=== PATIENT | male | born 1970 | race Caucasian/White ===

== ENCOUNTER 2018-05-19 20:48 | Emergency (ER) | payer BC ==
[2018-05-19 21:39] LABS: #Basophils 0.1 thou/uL (0.0-0.2); #Eosinphils 0.2 thou/uL (0.0-0.7); #Lymphocytes 1.9 thou/uL (1.20-3.40); #Monocytes 0.5 thou/uL (0.11-0.59); #Neutrophils 6.2 thou/uL (1.40-6.50); %Basophils 1.3 % (0.0-1.0); %Lymphocytes 21.1 % (21.0-51.0); %Monocytes 5.8 % (0.0-10.0); %Neutrophils 69.9 % (42.0-75.0); Hemoglobin 14.3 g/dL (14.0-18.0); Mean Corpuscular HGB CONC 33.4 g/dL (32.0-36.0); Mean Corpuscular Hemoglobin 28.2 pg (27.0-31.0); Mean Corpuscular Volume 84.4 fL (78.0-98.0); Mean Platelet Volume 9.5 fL (7.4-10.4); Platelet Count 147 thou/uL (130-400); RBC Distribution Width 12.2 % (11.5-14.5); Red Blood Cell (RBC) Count 5.07 mill/uL (4.70-6.10); White Blood Cell (WBC) Count 8.8 thou/uL (4.8-10.8)
--- NOTE | 2018-05-19 21:45 | RAD ---
CHEST ONE VIEW: 05/19/18 HISTORY: Chest pain. FINDINGS: No comparison. Cardiac silhouette is magnified by projection. Pulmonary vasculature is unremarkable. Mediastinum is midline. No lobar consolidation or evidence of pneumothorax. IMPRESSION: No active cardiopulmonary abnormalities are demonstrated. POS: [facility]
[2018-05-19 21:53] LABS: ALT (SGPT) 16 U/L (8-55); AST (SGOT) 14 U/L (5-34); Albumin 4.1 g/dL (3.5-5.0); Alkaline Phosphatase 75 U/L (40-150); Anion Gap 13 mmol/L (10-20); BUN (Urea Nitrogen) 15 mg/dL (8.9-20.6); Bilirubin, Total 0.5 mg/dL (0.2-1.2); Calc. Creatinine Clearance 0 mL/min (70-130); Calcium 9.2 mg/dL (7.8-10.44); Carbon Dioxide 26 mmol/L (22-29); Chloride 104 mmol/L (98-107); Estimated GFR-MDRD 85; Globulin 2.7 g/dL (2.4-3.5); Glucose 95 mg/dL (70-105); Potassium 3.8 mmol/L (3.5-5.1); Protein, Total 6.8 g/dL (6.0-8.3); Sodium 139 mmol/L (136-145)
== END 2018-05-19 22:24 | disposition home or self-care (01) ==
LOC: SCSER 20:48
DX: R07.89 Other chest pain (principal)
CPT/HCPCS: 36415; 71045; 80053; 84484; 85025; 93005

== ENCOUNTER 2018-05-28 12:15 | Outpatient (CLI) | payer BC ==
[2018-05-28 13:58] LABS: #Basophils 0.1 thou/uL (0.0-0.2); #Eosinphils 0.1 thou/uL (0.0-0.7); #Lymphocytes 1.4 thou/uL (1.20-3.40); #Monocytes 0.4 thou/uL (0.11-0.59); #Neutrophils 5.2 thou/uL (1.40-6.50); %Basophils 0.8 % (0.0-1.0); %Eosinophils 1.1 % (0.0-10.0); %Monocytes 5.2 % (0.0-10.0); %Neutrophils 72.8 % (42.0-75.0); Hemoglobin 15.2 g/dL (14.0-18.0); Mean Corpuscular HGB CONC 34.3 g/dL (32.0-36.0); Mean Corpuscular Hemoglobin 29.9 pg (27.0-31.0); Mean Corpuscular Volume 87.1 fL (78.0-98.0); Mean Platelet Volume 9.7 fL (7.4-10.4); Platelet Count 156 thou/uL (130-400); RBC Distribution Width 11.7 % (11.5-14.5); Red Blood Cell (RBC) Count 5.09 mill/uL (4.70-6.10); White Blood Cell (WBC) Count 7.2 thou/uL (4.8-10.8)
[2018-05-28 14:15] LABS: Cardiac Risk 4.5 (Less than 4.5)
== END 2018-05-28 12:16 | disposition home or self-care (01) ==
LOC: LABBT 12:15
PROVIDERS: ATTEND Internal Medicine Cardiovascular Disease
DX: Z01.812 Encounter for preprocedural laboratory examination (principal); R07.89 Other chest pain
CPT/HCPCS: 80061; 85025

== ENCOUNTER 2018-05-31 05:58 | Day surgery (SDC) | payer BC ==
[2018-05-28 12:29] VITALS: BMI 38.6
[2018-05-31] MEDS ORDERED: Diazepam 5 MG TAB ONE (06:10)
[2018-05-31] MEDS ORDERED: Midazolam HCl 2 mg/2 ml Vial ONE (06:32)
[2018-05-31] MEDS ORDERED: Fentanyl 100 MCG/2 ML VIAL ONE (06:33)
[2018-05-31] MEDS ORDERED: Iopamidol 370 76% 100 ML VIAL ONE (10:12)
--- NOTE | 2018-05-31 11:01 | ULT ---
FUltrasound abdomen limited: (Right upper quadrant) HISTORY: 47-year-old male with right upper quadrant abdominal pain FINDINGS: Patient is status post catheterization, and unable to turn decubitus. Shadowing from bowel gas and body habitus also limits visualization of abdominal contents. Gallbladder: Suboptimal visualization due to reasons given above. Normal wall thickness. No gallstone s or sludge identified. No pericholecystic fluid. Liver: Normal parenchymal echogenicity. Right kidney: No hydronephrosis. Pancreas: Nonspecific sonographic appearance.. Common duct caliber: 5 mm. IMPRESSION: 1. Limited study. 2. No gross evidence of acute cholecystitis. 3. No biliary obstruction.
--- NOTE | 2018-05-31 14:02 | DIS ---
DATE OF ADMISSION: 05/31/2018 DATE OF DISCHARGE: 05/31/2018 Mr. Perez underwent cardiac catheterization today. The indication was recurrent chest pressure and tightness. The patient underwent cardiac catheterization, revealed the followin. Left main, normal. 2. LAD, normal. 3. Circumflex, normal. 4. Right coronary, normal. On the right coronary artery, there was catheter induced at bending of the artery, but there was no obstructive stenosis. The films were reviewed carefully. I think this is all related to the catheter placement. The left ventricular ejection fraction is normal. Reviewing the patient's laboratory, his potassium is 3.8, BUN is 15, creatinine 0.9, AST 14, ALT 16. He had troponin levels which were negative despite prolonged episodes of chest pain. Pertinent laboratory: Cholesterol is 165, LDL 109, HDL 37. Hemoglobin was 15.2, WBCs 7.2. The source of the discomfort is unclear. He has been on proton pump inhibitors for now for a week and thus going to continue that. The episode he had Thursday was not as severe as the previous episodes. Ultrasound of the gallbladder was done, it is a suboptimal study as there was some gas and he could not lay on his side, but there was no obvious gallstones. At this stage, the patient's symptoms persist, could consider upper endoscopy. There is always a chance of coronary spasm, but that looks unlikely. The patient did have a repeat troponin level but I do not see it now in the computer. We will double check on that. The source of the discomfort is unclear at this time. It is possible that it is still esophageal spasm. Coronary spasm seems unlikely. Ask him to continue exerting himself. When he exerts himself, he feels fine. Follow up in the office in a couple of weeks. Job ID: [id number]
== END 2018-05-31 14:56 | disposition home or self-care (01) ==
LOC: CCL 05:58
PROVIDERS: ATTEND Internal Medicine Cardiovascular Disease
PROC: 4A023N7 Measurement of Cardiac Sampling and Pressure, Left Heart, Percutaneous Approach (ICD-10-PCS; principal; 2018-05-31)
PROC: B2111ZZ Fluoroscopy of Multiple Coronary Arteries using Low Osmolar Contrast (ICD-10-PCS; principal; 2018-05-31)
DX: R07.89 Other chest pain (principal); I10 Essential (primary) hypertension; Z79.82 Long term (current) use of aspirin; Z79.899 Other long term (current) drug therapy; Z88.0 Allergy status to penicillin
CPT/HCPCS: 76705; 76942; 93458; 99152; 99153; C1769; J1644; J2250; J3010; Q9967

== ENCOUNTER 2018-07-23 07:30 | Outpatient (CLI) | payer BC ==
--- NOTE | 2018-07-23 09:43 | CT ---
CT THORAX WITH IV CONTRAST: Date: 07/23/18 INDICATION: History of chest pain for last 3 months with high blood pressure. CONTRAST: 100 mL Isovue-[id number]. COMPARISON: Chest radiograph dated 05/19/18. FINDINGS: There is no air space consolidation, pleural effusion, or suspicious nodule identified. There is a justice b-4 mm subpleural pulmonary nodule within the anterolateral right lower lobe. There are areas of subs egmental volume loss within the medial segment of the right middle lobe. There is a calcified granulo ma within the medial segment of the right middle lobe. No enlarged lymph nodes are evident. Heart and great vessels appear within normal limits. No axillary lymphadenopathy is evident. Within the upper abdomen, no acute abnormality is evident. Minimal to mild disc degenerative disease is seen involving the thoracic spine. No acute osseous abno rmality is evident. A few scattered bone islands are seen within the thoracic vertebral bodies. IMPRESSION: No acute cardiopulmonary abnormality demonstrated. POS: [facility]
== END 2018-07-23 07:31 | disposition home or self-care (01) ==
LOC: SCSCT 07:30
PROVIDERS: ATTEND Internal Medicine Gastroenterology
DX: R07.9 Chest pain, unspecified (principal)
CPT/HCPCS: 71260

== ENCOUNTER 2018-10-28 07:53 | Outpatient (CLI) | payer BC ==
--- NOTE | 2018-10-28 09:57 | CT ---
CT coronary angiogram with and without contrast: DATE: 10/28/2018 HISTORY: 48-year-old male with chest pain TECHNIQUE: IV contrast: 104 mm Isovue-[id number]. Precontrast scan and arterial phase postcontrast scans through the heart, with limited [id number]. 3-D MIP reconstructions. FINDINGS: There is no coronary artery atherosclerotic calcification. No thoracic aortic aneurysm or dissection. No cardiomegaly or pericardial effusion. No atrial septal defect or ventricular septal defect. No thrombus in left atrial appendage. No consolidation or pulmonary edema in central portions of lungs. Elevated right hemidiaphragm. No significant noncalcified coronary atherosclerotic plaque visualized. No plaque visualized in the thoracic aorta. Trachea and major bronchi are patent and dagmar r. No evidence of significant stenosis involving RCA, left main, LAD, LCx, or PDA. Right dominant system. No atrial or ventricular chamber dilation. No anomalous origin or path of coronary arteries. No myocardial bridging identified. IMPRESSION: Normal
[2018-10-28] MEDS ORDERED: ISOVUE-370 76%-LOCM 1 ML ONE (17:12)
== END 2018-10-28 07:54 | disposition home or self-care (01) ==
LOC: BICCT 07:53
PROVIDERS: ATTEND Internal Medicine Cardiovascular Disease
DX: R07.89 Other chest pain (principal)
CPT/HCPCS: 75574; Q9966

== ENCOUNTER 2020-06-05 10:27 | Inpatient (IN) | payer BC ==
[~2020-06-05 10:27] MED LIST: PROPOFOL 200 MG/20 ML VIAL ONE; Succinylcholine 200 MG/10 ml SYRINGE FS ONE
[2020-06-05] MEDS ORDERED: Sodium Chloride 0.9% 1,000 ML IV SCH (13:45)
[2020-06-05] MEDS ORDERED: Zinc Sulfate 220 MG CAP PO SCH (14:00)
[2020-06-05] MEDS: DEXAMETHASONE IVPB SCH (14:45)
[2020-06-05] MEDS: SODIUM CHLORIDE 0.9% IVPB SCH (14:45)
[2020-06-05] MEDS: Sodium Chloride 0.9% 1,000 ML IV SCH (14:55)
[2020-06-05] MEDS: Cefepime 1 GM in Sodium Chloride 0.9% 100 ML IVPB SCH (14:55)
[2020-06-05] MEDS: Doxycycline 100 MG in Sodium Chloride 0.9% 100 ML IVPB SCH (14:58)
[2020-06-05] MEDS ORDERED: Thiamine HCl 200 MG/2 ML VIAL SLOW IVP SCH (15:00)
[2020-06-05] MEDS ORDERED: Guaifenesin DM 100-10/5 ML UDCUP PO PRN (16:39)
[2020-06-05] MEDS ORDERED: Propofol 1,000 MG/100 ML VIAL IV ONE (16:57)
[2020-06-05] MEDS ORDERED: Ventilator Sedation Protocol 1 EACH FS SCH (17:15)
[2020-06-05] MEDS ORDERED: Ondansetron PF 4 MG/2 ML Vial IVP PRN (17:27)
[2020-06-05] MEDS ORDERED: Fentanyl CADD 0 ML ONE (17:28)
[2020-06-05] MEDS ORDERED: Fentanyl BOLUS 250 ML IVPB PRN (17:30)
[2020-06-05] MEDS ORDERED: Morphine 2 MG/ML VIAL SLOW IVP PRN (17:30)
[2020-06-05] MEDS ORDERED: DISCONTINUE PREVIOUS NARCOTIC PAIN MEDICATIONS AND BENZODIAZEPINES FS SCH (17:30)
[2020-06-05] MEDS ORDERED: Propofol BOLUS 1,000 MG/100 ML VIAL IV PRN (17:30)
[2020-06-05] MEDS ORDERED: Fentanyl CADD 100 ML ONE (17:30)
[2020-06-05] MEDS: Fentanyl CADD 100 ML IV SCH ×2 (17:34→19:25)
[2020-06-05] MEDS: Lorazepam 2 MG/ML VIAL SLOW IVP PRN (17:34)
[2020-06-05] MEDS: Vecuronium 10 MG VIAL IV PRN (19:39)
[2020-06-05] MEDS ORDERED: Norepinephrine 8 MG/0.9% NS 250 ML ONE (19:56)
[2020-06-05 19:57] LABS: Actual Bicarbonate (HCO3a) 22.6 mEq/L (22-28); Base Excess (BEa) -2.3 mEq/L (-2.0 to +3.0); CO2 Tension 39.8 mmHg (35.0-45.0); Calcium, Ionized (arterial) 1.16 mmol/L (1.12-1.30); Carboxyhemoglobin (COHb) 0.4 gm% (0.0-3.0); Hemoglobin (Hb) 13.5 g/dL (14.0-18.0); Potassium - ABG Lab 4.57 mmol/L (3.70-5.30); pH, Arterial 7.37 (7.35-7.45)
[2020-06-05 19:59] LABS: O2 Tension (PaO2), arterial 58.2 mmHg (80.0-100.0); Puncture Site LRA
[2020-06-05] MEDS ORDERED: Norepinephrine 8 MG/0.9% NS 250 ML IVPB PRN (20:14)
[2020-06-05] MEDS ORDERED: Ascorbic Acid 500 mg Chewable Tablet PO SCH (21:00)
[2020-06-05] MEDS: Mometasone 200 MCG/Formoterol 5 MCG 120 PUFF INHALER INH SCH (21:12)
[2020-06-05] MEDS: Famotidine/PF 20 mg/2ml Vial SLOW IVP SCH (22:22)
[2020-06-05] MEDS: Enoxaparin Sodium 40 MG/0.4 ML SYRINGE SC SCH (22:22)
[2020-06-05] MEDS: Propofol 1,000 MG/100 ML VIAL IV PRN (22:30)
[2020-06-05] MEDS: Colchicine 0.6 MG TAB PO SCH (22:58)
[2020-06-06] MEDS: Propofol 1,000 MG/100 ML VIAL IV PRN ×10 (00:51→21:49)
[2020-06-06] MEDS: Vecuronium 10 MG VIAL IV PRN ×2 (01:03→12:10)
[2020-06-06] MEDS: Cefepime 1 GM in Sodium Chloride 0.9% 100 ML IVPB SCH ×2 (02:42→14:07)
[2020-06-06 03:19] LABS: #Lymphocytes 0.5 thou/uL (1.20-3.40); #Monocytes 0.4 thou/uL (0.11-0.59); #Neutrophils 6.6 thou/uL (1.40-6.50); %Basophils 0.1 % (0.0-1.0); %Monocytes 4.9 % (0.0-10.0); Hemoglobin 11.6 g/dL (14.0-18.0); Mean Corpuscular HGB CONC 32.5 g/dL (32.0-36.0); Mean Corpuscular Hemoglobin 27.9 pg (27.0-31.0); Mean Platelet Volume 8.8 fL (7.4-10.4); Platelet Count 148 thou/uL (130-400); RBC Distribution Width 12.2 % (11.5-14.5); Red Blood Cell (RBC) Count 4.15 mill/uL (4.70-6.10); White Blood Cell (WBC) Count 7.5 thou/uL (4.8-10.8)
[2020-06-06 03:40] LABS: ALT (SGPT) 28 U/L (8-55); AST (SGOT) 46 U/L (5-34); Albumin 3.1 g/dL (3.5-5.0); Alkaline Phosphatase 61 U/L (40-110); Bilirubin, Direct 0.2 mg/dL (0.1-0.3); Bilirubin, Total 0.5 mg/dL (0.2-1.2); Protein, Total 6.1 g/dL (6.0-8.3)
[2020-06-06 03:53] LABS: Anion Gap 16 mmol/L (10-20); BUN (Urea Nitrogen) 33 mg/dL (8.9-20.6); Calc. Creatinine Clearance 186 mL/min (70-130); Calcium 8.5 mg/dL (7.8-10.44); Carbon Dioxide 18 mmol/L (22-29); Chloride 109 mmol/L (98-107); Glucose 139 mg/dL (70-105); Potassium 4.1 mmol/L (3.5-5.1); Sodium 139 mmol/L (136-145)
[2020-06-06] MEDS: Mometasone 200 MCG/Formoterol 5 MCG 120 PUFF INHALER INH SCH ×2 (08:00→18:25)
[2020-06-06] MEDS ORDERED: Albumin 25% 25 GM/100 ML BOT IVPB ONE (08:51)
[2020-06-06] MEDS ORDERED: Enoxaparin Sodium 40 MG/0.4 ML SYRINGE SC SCH (09:00)
[2020-06-06] MEDS: Enoxaparin Sodium 40 MG/0.4 ML SYRINGE SC SCH ×2 (09:18→20:46)
[2020-06-06] MEDS: Colchicine 0.6 MG TAB PO SCH ×2 (09:18→20:46)
[2020-06-06] MEDS: Famotidine/PF 20 mg/2ml Vial SLOW IVP SCH ×2 (09:18→20:46)
[2020-06-06] MEDS: REMDESIVIR (EUA) 100 MG in Sodium Chloride 0.9% 250 ML 230 ML IV SCH (09:19)
[2020-06-06] MEDS: Zinc Sulfate 220 MG CAP PO SCH (09:19)
[2020-06-06] MEDS: Sodium Chloride 0.9% 1,000 ML IV SCH (09:20)
[2020-06-06] MEDS: Doxycycline 100 MG in Sodium Chloride 0.9% 100 ML IVPB SCH (09:21)
[2020-06-06] MEDS: SODIUM CHLORIDE 0.9% IVPB SCH (14:07)
[2020-06-06] MEDS: DEXAMETHASONE IVPB SCH (14:07)
[2020-06-06] MEDS ORDERED: Fentanyl CADD 100 ML ONE (16:51)
[2020-06-06] MEDS: Fentanyl CADD 100 ML IV SCH (16:55)
[2020-06-07] MEDS: Propofol 1,000 MG/100 ML VIAL IV PRN ×10 (02:02→23:35)
[2020-06-07] MEDS: Cefepime 1 GM in Sodium Chloride 0.9% 100 ML IVPB SCH ×2 (02:02→15:09)
[2020-06-07] MEDS: Vecuronium 10 MG VIAL IV PRN ×4 (02:25→15:58)
[2020-06-07] MEDS ORDERED: Fentanyl CADD 100 ML ONE ×2 (04:09→17:23)
[2020-06-07] MEDS: Fentanyl CADD 100 ML IV SCH ×2 (04:14→17:31)
[2020-06-07 04:17] LABS: Anion Gap 14 mmol/L (10-20); BUN (Urea Nitrogen) 32 mg/dL (8.9-20.6); Calc. Creatinine Clearance 206 mL/min (70-130); Calcium 8.5 mg/dL (7.8-10.44); Carbon Dioxide 20 mmol/L (22-29); Chloride 109 mmol/L (98-107); Glucose 146 mg/dL (70-105); Potassium 4.4 mmol/L (3.5-5.1); Sodium 139 mmol/L (136-145)
[2020-06-07] MEDS: Sodium Chloride 0.9% 1,000 ML IV SCH (06:00)
[2020-06-07] MEDS: Mometasone 200 MCG/Formoterol 5 MCG 120 PUFF INHALER INH SCH ×2 (07:32→19:01)
[2020-06-07 09:09] LABS: Actual Bicarbonate (HCO3a) 20.2 mEq/L (22-28); Base Excess (BEa) -2.4 mEq/L (-2.0 to +3.0); CO2 Tension 28.6 mmHg (35.0-45.0); Calcium, Ionized (arterial) 1.17 mmol/L (1.12-1.30); Carboxyhemoglobin (COHb) 0.3 gm% (0.0-3.0); Hemoglobin (Hb) 12.4 g/dL (14.0-18.0); O2 Tension (PaO2), arterial 92.1 mmHg (80.0-100.0); Potassium - ABG Lab 4.14 mmol/L (3.70-5.30); pH, Arterial 7.47 (7.35-7.45)
[2020-06-07 09:12] LABS: Puncture Site RRA
[2020-06-07] MEDS: Colchicine 0.6 MG TAB PO SCH ×2 (09:18→20:27)
[2020-06-07] MEDS: REMDESIVIR (EUA) 100 MG in Sodium Chloride 0.9% 250 ML 230 ML IV SCH (09:18)
[2020-06-07] MEDS: Enoxaparin Sodium 40 MG/0.4 ML SYRINGE SC SCH ×2 (09:18→20:28)
[2020-06-07] MEDS: Zinc Sulfate 220 MG CAP PO SCH (09:19)
[2020-06-07] MEDS: Famotidine/PF 20 mg/2ml Vial SLOW IVP SCH (09:19)
[2020-06-07 10:07] LABS: #Lymphocytes 0.8 thou/uL (1.20-3.40); #Monocytes 0.6 thou/uL (0.11-0.59); #Neutrophils 9.6 thou/uL (1.40-6.50); %Lymphocytes 6.9 % (21.0-51.0); %Monocytes 5.3 % (0.0-10.0); %Neutrophils 87.8 % (42.0-75.0); Hemoglobin 11.6 g/dL (14.0-18.0); Mean Corpuscular HGB CONC 32.5 g/dL (32.0-36.0); Mean Corpuscular Hemoglobin 27.7 pg (27.0-31.0); Mean Corpuscular Volume 85.5 fL (78.0-98.0); Mean Platelet Volume 9.7 fL (7.4-10.4); Platelet Count 223 thou/uL (130-400); RBC Distribution Width 12.3 % (11.5-14.5); Red Blood Cell (RBC) Count 4.19 mill/uL (4.70-6.10)
[2020-06-07] MEDS: Lorazepam 2 MG/ML VIAL SLOW IVP PRN (11:47)
[2020-06-07] MEDS: SODIUM CHLORIDE 0.9% IVPB SCH (15:09)
[2020-06-07] MEDS: DEXAMETHASONE IVPB SCH (15:09)
[2020-06-07] MEDS: Famotidine 20 MG TAB PER TUBE SCH (20:27)
[2020-06-08] MEDS: Propofol 1,000 MG/100 ML VIAL IV PRN ×8 (01:42→22:18)
[2020-06-08] MEDS: Cefepime 1 GM in Sodium Chloride 0.9% 100 ML IVPB SCH ×2 (02:25→13:25)
[2020-06-08] MEDS: Fentanyl CADD 100 ML IV SCH ×2 (02:36→22:18)
[2020-06-08] MEDS: Sodium Chloride 0.9% 1,000 ML IV SCH ×2 (03:52→21:03)
[2020-06-08 06:15] LABS: #Lymphocytes 0.6 thou/uL (1.20-3.40); #Monocytes 0.5 thou/uL (0.11-0.59); #Neutrophils 8.3 thou/uL (1.40-6.50); %Basophils 0.3 % (0.0-1.0); %Eosinophils 0.5 % (0.0-10.0); %Lymphocytes 5.8 % (21.0-51.0); %Monocytes 5.2 % (0.0-10.0); %Neutrophils 88.2 % (42.0-75.0); Hemoglobin 10.5 g/dL (14.0-18.0); Mean Corpuscular HGB CONC 32.6 g/dL (32.0-36.0); Mean Corpuscular Hemoglobin 27.8 pg (27.0-31.0); Mean Corpuscular Volume 85.4 fL (78.0-98.0); Mean Platelet Volume 8.6 fL (7.4-10.4); Platelet Count 228 thou/uL (130-400); RBC Distribution Width 12.2 % (11.5-14.5); Red Blood Cell (RBC) Count 3.79 mill/uL (4.70-6.10); White Blood Cell (WBC) Count 9.4 thou/uL (4.8-10.8)
[2020-06-08 06:38] LABS: Anion Gap 13 mmol/L (10-20); BUN (Urea Nitrogen) 30 mg/dL (8.9-20.6); Calc. Creatinine Clearance 272 mL/min (70-130); Calcium 7.4 mg/dL (7.8-10.44); Carbon Dioxide 16 mmol/L (22-29); Chloride 115 mmol/L (98-107); Glucose 132 mg/dL (70-105); Potassium 3.8 mmol/L (3.5-5.1); Sodium 140 mmol/L (136-145)
[2020-06-08 06:39] LABS: ALT (SGPT) 20 U/L (8-55); AST (SGOT) 20 U/L (5-34); Albumin 2.8 g/dL (3.5-5.0); Alkaline Phosphatase 52 U/L (40-110); Bilirubin, Direct 0.2 mg/dL (0.1-0.3); Bilirubin, Total 0.3 mg/dL (0.2-1.2); Protein, Total 4.9 g/dL (6.0-8.3)
[2020-06-08 06:57] LABS: Actual Bicarbonate (HCO3a) 18.6 mEq/L (22-28); Base Excess (BEa) -3.9 mEq/L (-2.0 to +3.0); CO2 Tension 26.9 mmHg (35.0-45.0); Calcium, Ionized (arterial) 1.19 mmol/L (1.12-1.30); Carboxyhemoglobin (COHb) 0.3 gm% (0.0-3.0); Hemoglobin (Hb) 12.5 g/dL (14.0-18.0); O2 Tension (PaO2), arterial 96.6 mmHg (80.0-100.0); Potassium - ABG Lab 4.14 mmol/L (3.70-5.30); pH, Arterial 7.46 (7.35-7.45)
[2020-06-08 06:58] LABS: Puncture Site LRA
[2020-06-08 06:59] LABS: ALV-art Gradient 190.625 mmHg (0-20)
[2020-06-08] MEDS: Mometasone 200 MCG/Formoterol 5 MCG 120 PUFF INHALER INH SCH ×2 (06:59→19:08)
[2020-06-08] MEDS: Enoxaparin Sodium 40 MG/0.4 ML SYRINGE SC SCH ×2 (08:36→20:59)
[2020-06-08] MEDS: Colchicine 0.6 MG TAB PO SCH ×2 (08:36→20:31)
[2020-06-08] MEDS: Zinc Sulfate 220 MG CAP PO SCH (08:36)
[2020-06-08] MEDS: Famotidine 20 MG TAB PER TUBE SCH ×2 (08:36→20:31)
[2020-06-08] MEDS: REMDESIVIR (EUA) 100 MG in Sodium Chloride 0.9% 250 ML 230 ML IV SCH (09:42)
[2020-06-08] MEDS: Vecuronium 10 MG VIAL IV PRN ×3 (10:27→13:52)
[2020-06-08] MEDS: Lorazepam 2 MG/ML VIAL SLOW IVP PRN (12:21)
[2020-06-08] MEDS ORDERED: Fentanyl CADD 100 ML ONE ×2 (12:35→22:12)
[2020-06-08] MEDS: Fentanyl CADD 100 ML ONE ×2 (12:38→22:19)
[2020-06-08] MEDS: DEXAMETHASONE IVPB SCH (13:51)
[2020-06-08] MEDS: SODIUM CHLORIDE 0.9% IVPB SCH (13:51)
[2020-06-09] MEDS: Propofol 1,000 MG/100 ML VIAL IV PRN ×10 (00:57→23:16)
[2020-06-09] MEDS: Vecuronium 10 MG VIAL IV PRN (02:07)
[2020-06-09] MEDS: Cefepime 1 GM in Sodium Chloride 0.9% 100 ML IVPB SCH ×2 (02:22→14:36)
[2020-06-09 03:44] LABS: #Lymphocytes 0.8 thou/uL (1.20-3.40); #Monocytes 0.6 thou/uL (0.11-0.59); #Neutrophils 9.1 thou/uL (1.40-6.50); %Eosinophils 0.1 % (0.0-10.0); %Lymphocytes 7.2 % (21.0-51.0); %Monocytes 5.6 % (0.0-10.0); %Neutrophils 87.1 % (42.0-75.0); Hemoglobin 11.5 g/dL (14.0-18.0); Mean Corpuscular HGB CONC 32.4 g/dL (32.0-36.0); Mean Corpuscular Hemoglobin 27.3 pg (27.0-31.0); Mean Corpuscular Volume 84.4 fL (78.0-98.0); Mean Platelet Volume 8.9 fL (7.4-10.4); Platelet Count 260 thou/uL (130-400); RBC Distribution Width 11.9 % (11.5-14.5); White Blood Cell (WBC) Count 10.5 thou/uL (4.8-10.8)
[2020-06-09 03:57] LABS: Anion Gap 13 mmol/L (10-20); BUN (Urea Nitrogen) 30 mg/dL (8.9-20.6); CRP (Inflammatory) 2.95 mg/dL (= or < 0.5); Calc. Creatinine Clearance 242 mL/min (70-130); Calcium 7.8 mg/dL (7.8-10.44); Carbon Dioxide 19 mmol/L (22-29); Chloride 110 mmol/L (98-107); Glucose 135 mg/dL (70-105); Potassium 4.3 mmol/L (3.5-5.1); Sodium 138 mmol/L (136-145)
[2020-06-09 07:09] LABS: Base Excess (BEa) -1.8 mEq/L (-2.0 to +3.0); CO2 Tension 29.9 mmHg (35.0-45.0); Calcium, Ionized (arterial) 1.17 mmol/L (1.12-1.30); Carboxyhemoglobin (COHb) 0.3 gm% (0.0-3.0); Hemoglobin (Hb) 12.5 g/dL (14.0-18.0); O2 Tension (PaO2), arterial 94.4 mmHg (80.0-100.0); Potassium - ABG Lab 4.29 mmol/L (3.70-5.30); pH, Arterial 7.46 (7.35-7.45)
[2020-06-09 07:10] LABS: Puncture Site LRA
[2020-06-09 07:11] LABS: ALV-art Gradient 224.725 mmHg (0-20)
[2020-06-09] MEDS ORDERED: Fentanyl CADD 100 ML ONE ×2 (07:19→15:57)
[2020-06-09] MEDS: Mometasone 200 MCG/Formoterol 5 MCG 120 PUFF INHALER INH SCH ×2 (07:30→19:16)
[2020-06-09] MEDS: Fentanyl CADD 100 ML IV SCH ×2 (07:48→16:42)
[2020-06-09] MEDS: Lorazepam 2 MG/ML VIAL SLOW IVP PRN ×3 (08:47→20:45)
[2020-06-09] MEDS: Enoxaparin Sodium 40 MG/0.4 ML SYRINGE SC SCH ×2 (08:48→19:45)
[2020-06-09] MEDS: Famotidine 20 MG TAB PER TUBE SCH ×2 (08:49→19:45)
[2020-06-09] MEDS: Zinc Sulfate 220 MG CAP PO SCH (08:49)
[2020-06-09] MEDS: Colchicine 0.6 MG TAB PO SCH ×2 (08:49→19:45)
[2020-06-09] MEDS: SODIUM CHLORIDE 0.9% IVPB SCH (14:36)
[2020-06-09] MEDS: DEXAMETHASONE IVPB SCH (14:36)
[2020-06-09] MEDS: Sodium Chloride 0.9% 1,000 ML IV SCH (19:45)
[2020-06-10] MEDS ORDERED: Fentanyl CADD 100 ML ONE ×2 (01:38→17:50)
[2020-06-10] MEDS: Propofol 1,000 MG/100 ML VIAL IV PRN ×7 (01:43→22:27)
[2020-06-10] MEDS: Fentanyl CADD 100 ML IV SCH ×2 (02:51→19:06)
[2020-06-10] MEDS: Cefepime 1 GM in Sodium Chloride 0.9% 100 ML IVPB SCH ×2 (03:45→14:38)
[2020-06-10 04:18] LABS: #Basophils 0.1 thou/uL (0.0-0.2); #Lymphocytes 0.8 thou/uL (1.20-3.40); #Monocytes 0.6 thou/uL (0.11-0.59); #Neutrophils 9.5 thou/uL (1.40-6.50); %Basophils 0.5 % (0.0-1.0); %Eosinophils 0.3 % (0.0-10.0); %Lymphocytes 7.3 % (21.0-51.0); %Monocytes 5.1 % (0.0-10.0); %Neutrophils 86.8 % (42.0-75.0); Hemoglobin 12.6 g/dL (14.0-18.0); Mean Corpuscular HGB CONC 35.5 g/dL (32.0-36.0); Mean Corpuscular Hemoglobin 29.9 pg (27.0-31.0); Mean Corpuscular Volume 84.3 fL (78.0-98.0); Platelet Count 258 thou/uL (130-400); RBC Distribution Width 11.9 % (11.5-14.5); Red Blood Cell (RBC) Count 4.21 mill/uL (4.70-6.10); White Blood Cell (WBC) Count 10.9 thou/uL (4.8-10.8)
[2020-06-10 04:39] LABS: Anion Gap 14 mmol/L (10-20); BUN (Urea Nitrogen) 27 mg/dL (8.9-20.6); Calc. Creatinine Clearance 246 mL/min (70-130); Calcium 8.1 mg/dL (7.8-10.44); Carbon Dioxide 21 mmol/L (22-29); Chloride 106 mmol/L (98-107); Glucose 139 mg/dL (70-105); Potassium 4.4 mmol/L (3.5-5.1); Sodium 137 mmol/L (136-145)
[2020-06-10 07:19] LABS: Actual Bicarbonate (HCO3a) 23.9 mEq/L (22-28); Base Excess (BEa) 0.2 mEq/L (-2.0 to +3.0); CO2 Tension 35.9 mmHg (35.0-45.0); Calcium, Ionized (arterial) 1.16 mmol/L (1.12-1.30); Carboxyhemoglobin (COHb) 0.2 gm% (0.0-3.0); Hemoglobin (Hb) 12.6 g/dL (14.0-18.0); O2 Tension (PaO2), arterial 107.9 mmHg (80.0-100.0); pH, Arterial 7.44 (7.35-7.45)
[2020-06-10 07:20] LABS: ALV-art Gradient 168.075 mmHg (0-20); Puncture Site LRA
[2020-06-10] MEDS: Mometasone 200 MCG/Formoterol 5 MCG 120 PUFF INHALER INH SCH ×2 (07:23→19:47)
[2020-06-10] MEDS: Enoxaparin Sodium 40 MG/0.4 ML SYRINGE SC SCH ×2 (08:28→20:23)
[2020-06-10] MEDS: Colchicine 0.6 MG TAB PO SCH ×2 (08:28→20:23)
[2020-06-10] MEDS: Famotidine 20 MG TAB PER TUBE SCH ×2 (08:28→20:23)
[2020-06-10] MEDS: Zinc Sulfate 220 MG CAP PO SCH (08:28)
[2020-06-10] MEDS: Ivermectin 3 MG TAB PO SCH (08:29)
[2020-06-10] MEDS: DEXAMETHASONE IVPB SCH (11:54)
[2020-06-10] MEDS: SODIUM CHLORIDE 0.9% IVPB SCH (11:54)
[2020-06-10] MEDS: Lorazepam 2 MG/ML VIAL SLOW IVP PRN ×3 (13:12→20:24)
[2020-06-10] MEDS: Sodium Chloride 0.9% 1,000 ML IV SCH (16:33)
[2020-06-11] MEDS: Propofol 1,000 MG/100 ML VIAL IV PRN ×7 (00:50→22:13)
[2020-06-11] MEDS: Lorazepam 2 MG/ML VIAL SLOW IVP PRN ×5 (00:51→22:13)
[2020-06-11] MEDS: Cefepime 1 GM in Sodium Chloride 0.9% 100 ML IVPB SCH ×2 (02:50→15:08)
[2020-06-11 04:26] LABS: #Eosinphils 0.1 thou/uL (0.0-0.7); #Lymphocytes 0.9 thou/uL (1.20-3.40); #Monocytes 0.7 thou/uL (0.11-0.59); #Neutrophils 12.1 thou/uL (1.40-6.50); %Basophils 0.1 % (0.0-1.0); %Eosinophils 0.4 % (0.0-10.0); %Lymphocytes 6.7 % (21.0-51.0); %Monocytes 5.2 % (0.0-10.0); %Neutrophils 87.6 % (42.0-75.0); Hemoglobin 12.8 g/dL (14.0-18.0); Mean Corpuscular HGB CONC 33.8 g/dL (32.0-36.0); Mean Corpuscular Hemoglobin 28.2 pg (27.0-31.0); Mean Corpuscular Volume 83.5 fL (78.0-98.0); Mean Platelet Volume 8.8 fL (7.4-10.4); Platelet Count 245 thou/uL (130-400); RBC Distribution Width 12.1 % (11.5-14.5); Red Blood Cell (RBC) Count 4.55 mill/uL (4.70-6.10); White Blood Cell (WBC) Count 13.8 thou/uL (4.8-10.8)
[2020-06-11 04:46] LABS: Anion Gap 15 mmol/L (10-20); BUN (Urea Nitrogen) 26 mg/dL (8.9-20.6); Calc. Creatinine Clearance 254 mL/min (70-130); Calcium 8.5 mg/dL (7.8-10.44); Carbon Dioxide 20 mmol/L (22-29); Chloride 103 mmol/L (98-107); Glucose 152 mg/dL (70-105); Potassium 4.3 mmol/L (3.5-5.1); Sodium 134 mmol/L (136-145)
[2020-06-11] MEDS: Mometasone 200 MCG/Formoterol 5 MCG 120 PUFF INHALER INH SCH ×2 (08:00→18:13)
[2020-06-11 08:15] LABS: Actual Bicarbonate (HCO3a) 20.9 mEq/L (22-28); Base Excess (BEa) -1.2 mEq/L (-2.0 to +3.0); CO2 Tension 27.9 mmHg (35.0-45.0); Calcium, Ionized (arterial) 1.16 mmol/L (1.12-1.30); Carboxyhemoglobin (COHb) 0.5 gm% (0.0-3.0); Hemoglobin (Hb) 13.6 g/dL (14.0-18.0); O2 Tension (PaO2), arterial 103.1 mmHg (80.0-100.0); Potassium - ABG Lab 4.33 mmol/L (3.70-5.30); pH, Arterial 7.49 (7.35-7.45)
[2020-06-11 08:17] LABS: Puncture Site RRA
[2020-06-11 08:18] LABS: ALV-art Gradient 182.875 mmHg (0-20)
[2020-06-11] MEDS: Famotidine 20 MG TAB PER TUBE SCH ×2 (08:19→20:10)
[2020-06-11] MEDS: Enoxaparin Sodium 40 MG/0.4 ML SYRINGE SC SCH ×2 (08:19→20:13)
[2020-06-11] MEDS: Colchicine 0.6 MG TAB PO SCH ×2 (08:19→20:12)
[2020-06-11] MEDS: Zinc Sulfate 220 MG CAP PO SCH (08:19)
[2020-06-11] MEDS: Ivermectin 3 MG TAB PO SCH (08:20)
[2020-06-11] MEDS: Sodium Chloride 0.9% 1,000 ML IV SCH (10:29)
[2020-06-11] MEDS: SODIUM CHLORIDE 0.9% IVPB SCH (13:20)
[2020-06-11] MEDS: DEXAMETHASONE SOD PHOSPHATE IVPB SCH (13:20)
[2020-06-11] MEDS: Cholecalciferol 1,000 UNITS (25 MCG) TAB PO SCH (20:10)
[2020-06-11] MEDS: Ascorbic Acid 500 mg Chewable Tablet PO SCH (20:12)
[2020-06-11] MEDS ORDERED: Fentanyl CADD 100 ML ONE (21:26)
[2020-06-11] MEDS: Fentanyl CADD 100 ML IV SCH (21:29)
[2020-06-12] MEDS: Propofol 1,000 MG/100 ML VIAL IV PRN ×3 (01:45→08:06)
[2020-06-12] MEDS: Cefepime 1 GM in Sodium Chloride 0.9% 100 ML IVPB SCH ×2 (03:14→17:28)
[2020-06-12 05:05] LABS: Anion Gap 13 mmol/L (10-20); BUN (Urea Nitrogen) 26 mg/dL (8.9-20.6); Calc. Creatinine Clearance 237 mL/min (70-130); Calcium 8.6 mg/dL (7.8-10.44); Carbon Dioxide 25 mmol/L (22-29); Chloride 101 mmol/L (98-107); Glucose 119 mg/dL (70-105); Potassium 4.5 mmol/L (3.5-5.1); Sodium 134 mmol/L (136-145)
[2020-06-12 05:09] LABS: Band 6 % (5-11); Hemoglobin 13.3 g/dL (14.0-18.0); Lymphocytes 5 % (21-51); MDiff Complete? YES; Mean Corpuscular HGB CONC 33.1 g/dL (32.0-36.0); Mean Corpuscular Volume 84.7 fL (78.0-98.0); Mean Platelet Volume 9.1 fL (7.4-10.4); Monocytes 2 % (0-10); Neutrophil 87 % (42-75); Platelet Count 249 thou/uL (130-400); Platelet Morphology Comment Appears Adequate; RBC Distribution Width 12.5 % (11.5-14.5); RBC Morphology Normal; Red Blood Cell (RBC) Count 4.75 mill/uL (4.70-6.10)
[2020-06-12] MEDS: Sodium Chloride 0.9% 1,000 ML IV SCH (07:14)
[2020-06-12 07:50] LABS: Actual Bicarbonate (HCO3a) 24.7 mEq/L (22-28); Base Excess (BEa) 0.4 mEq/L (-2.0 to +3.0); CO2 Tension 38.9 mmHg (35.0-45.0); Calcium, Ionized (arterial) 1.18 mmol/L (1.12-1.30); Carboxyhemoglobin (COHb) 0.6 gm% (0.0-3.0); Hemoglobin (Hb) 13.8 g/dL (14.0-18.0); O2 Tension (PaO2), arterial 90.5 mmHg (80.0-100.0); Potassium - ABG Lab 4.97 mmol/L (3.70-5.30); pH, Arterial 7.42 (7.35-7.45)
[2020-06-12] MEDS: Mometasone 200 MCG/Formoterol 5 MCG 120 PUFF INHALER INH SCH ×2 (07:50→18:44)
[2020-06-12 07:53] LABS: Puncture Site RBA
[2020-06-12 07:54] LABS: ALV-art Gradient 146.075 mmHg (0-20)
[2020-06-12] MEDS: Ivermectin 3 MG TAB PO SCH (08:06)
[2020-06-12] MEDS: Ascorbic Acid 500 mg Chewable Tablet PO SCH ×2 (08:06→20:30)
[2020-06-12] MEDS: Zinc Sulfate 220 MG CAP PO SCH (08:06)
[2020-06-12] MEDS: Famotidine 20 MG TAB PER TUBE SCH ×2 (08:06→20:31)
[2020-06-12] MEDS: Colchicine 0.6 MG TAB PO SCH ×2 (08:07→20:35)
[2020-06-12] MEDS: Enoxaparin Sodium 40 MG/0.4 ML SYRINGE SC SCH ×2 (08:07→20:31)
[2020-06-12] MEDS: Lorazepam 2 MG/ML VIAL SLOW IVP PRN ×2 (12:30→14:26)
[2020-06-12] MEDS: SODIUM CHLORIDE 0.9% IVPB SCH (14:26)
[2020-06-12] MEDS: DEXAMETHASONE SOD PHOSPHATE IVPB SCH (14:26)
[2020-06-12] MEDS: Cholecalciferol 1,000 UNITS (25 MCG) TAB PO SCH (20:30)
[2020-06-13] MEDS: Propofol 1,000 MG/100 ML VIAL IV PRN ×2 (00:29→04:50)
[2020-06-13] MEDS: Sodium Chloride 0.9% 1,000 ML IV SCH (02:35)
[2020-06-13 05:52] LABS: #Eosinphils 0.1 thou/uL (0.0-0.7); %Basophils 0.1 % (0.0-1.0)
[2020-06-13 05:55] LABS: Anion Gap 13 mmol/L (10-20); BUN (Urea Nitrogen) 27 mg/dL (8.9-20.6); Calc. Creatinine Clearance 231 mL/min (70-130); Calcium 8.8 mg/dL (7.8-10.44); Carbon Dioxide 27 mmol/L (22-29); Chloride 102 mmol/L (98-107); Glucose 111 mg/dL (70-105); Potassium 4.4 mmol/L (3.5-5.1); Sodium 138 mmol/L (136-145)
[2020-06-13 06:09] LABS: #Lymphocytes 0.7 thou/uL (1.20-3.40); #Monocytes 1.3 thou/uL (0.11-0.59); #Neutrophils 17.7 thou/uL (1.40-6.50); %Eosinophils 0.5 % (0.0-10.0); %Lymphocytes 3.5 % (21.0-51.0); %Monocytes 6.7 % (0.0-10.0); %Neutrophils 89.1 % (42.0-75.0); Mean Corpuscular HGB CONC 31.9 g/dL (32.0-36.0); Mean Corpuscular Volume 84.7 fL (78.0-98.0); Mean Platelet Volume 9.7 fL (7.4-10.4); Platelet Count 232 thou/uL (130-400); RBC Distribution Width 12.7 % (11.5-14.5); Red Blood Cell (RBC) Count 5.17 mill/uL (4.70-6.10); White Blood Cell (WBC) Count 19.8 thou/uL (4.8-10.8)
[2020-06-13 07:04] LABS: Actual Bicarbonate (HCO3a) 25.8 mEq/L (22-28); Base Excess (BEa) 2.3 mEq/L (-2.0 to +3.0); CO2 Tension 36.9 mmHg (35.0-45.0); Calcium, Ionized (arterial) 1.19 mmol/L (1.12-1.30); Carboxyhemoglobin (COHb) 0.5 gm% (0.0-3.0); Hemoglobin (Hb) 14.5 g/dL (14.0-18.0); O2 Tension (PaO2), arterial 89.5 mmHg (80.0-100.0); Potassium - ABG Lab 4.58 mmol/L (3.70-5.30); pH, Arterial 7.46 (7.35-7.45)
[2020-06-13 07:06] LABS: ALV-art Gradient 149.575 mmHg (0-20); Puncture Site RRA
[2020-06-13] MEDS: Mometasone 200 MCG/Formoterol 5 MCG 120 PUFF INHALER INH SCH ×2 (07:06→18:28)
[2020-06-13] MEDS: Enoxaparin Sodium 40 MG/0.4 ML SYRINGE SC SCH ×2 (08:07→19:49)
[2020-06-13] MEDS: Colchicine 0.6 MG TAB PO SCH ×2 (08:07→19:51)
[2020-06-13] MEDS: Ivermectin 3 MG TAB PO SCH (08:07)
[2020-06-13] MEDS: Ascorbic Acid 500 mg Chewable Tablet PO SCH ×2 (08:07→19:50)
[2020-06-13] MEDS: Zinc Sulfate 220 MG CAP PO SCH (08:07)
[2020-06-13] MEDS: Famotidine 20 MG TAB PER TUBE SCH ×2 (08:07→19:51)
[2020-06-13] MEDS ORDERED: DC Sedation Protocol FS ONE (08:32)
[2020-06-13] MEDS: DEXAMETHASONE SOD PHOSPHATE IVPB SCH (13:48)
[2020-06-13] MEDS: SODIUM CHLORIDE 0.9% IVPB SCH (13:48)
[2020-06-13] MEDS: Cholecalciferol 1,000 UNITS (25 MCG) TAB PO SCH (19:50)
[2020-06-14] MEDS ORDERED: ALPRAZolam 0.25 MG TAB PO SCH (03:15)
[2020-06-14 04:16] LABS: #Eosinphils 0.1 thou/uL (0.0-0.7); #Monocytes 1.4 thou/uL (0.11-0.59); #Neutrophils 15.6 thou/uL (1.40-6.50); %Eosinophils 0.5 % (0.0-10.0); %Lymphocytes 5.4 % (21.0-51.0); %Monocytes 7.6 % (0.0-10.0); %Neutrophils 86.5 % (42.0-75.0); Mean Corpuscular HGB CONC 34.2 g/dL (32.0-36.0); Mean Corpuscular Hemoglobin 28.7 pg (27.0-31.0); Mean Platelet Volume 9.2 fL (7.4-10.4); Platelet Count 195 thou/uL (130-400); RBC Distribution Width 12.9 % (11.5-14.5); Red Blood Cell (RBC) Count 4.86 mill/uL (4.70-6.10)
[2020-06-14 04:24] LABS: Anion Gap 12 mmol/L (10-20); BUN (Urea Nitrogen) 29 mg/dL (8.9-20.6); Calc. Creatinine Clearance 234 mL/min (70-130); Calcium 8.4 mg/dL (7.8-10.44); Carbon Dioxide 26 mmol/L (22-29); Chloride 100 mmol/L (98-107); Glucose 97 mg/dL (70-105); Potassium 4.4 mmol/L (3.5-5.1); Sodium 134 mmol/L (136-145)
[2020-06-14 04:30] LABS: Troponin I Less than 0.010 ng/mL (< 0.028)
[2020-06-14] MEDS: Acetaminophen 325 MG TAB PO PRN (04:32)
[2020-06-14 07:13] LABS: Troponin I Less than 0.010 ng/mL (< 0.028)
[2020-06-14] MEDS: Mometasone 200 MCG/Formoterol 5 MCG 120 PUFF INHALER INH SCH ×2 (08:16→18:15)
[2020-06-14] MEDS: Famotidine 20 MG TAB PER TUBE SCH ×2 (08:46→20:32)
[2020-06-14] MEDS: Zinc Sulfate 220 MG CAP PO SCH (08:47)
[2020-06-14] MEDS: Colchicine 0.6 MG TAB PO SCH ×2 (08:47→20:32)
[2020-06-14] MEDS: Ascorbic Acid 500 mg Chewable Tablet PO SCH ×2 (08:47→20:33)
[2020-06-14] MEDS: Enoxaparin Sodium 40 MG/0.4 ML SYRINGE SC SCH ×2 (08:48→20:32)
[2020-06-14] MEDS: Ivermectin 3 MG TAB PO SCH (08:49)
[2020-06-14] MEDS ORDERED: ALPRAZolam 0.25 MG TAB PO PRN (08:54)
[2020-06-14] MEDS: Dexamethasone 4 MG TAB PO SCH ×2 (09:24→20:33)
[2020-06-14] MEDS: Escitalopram Oxalate 10 mg Tablet PO SCH (09:24)
[2020-06-14 09:41] LABS: Troponin I 0.021 ng/mL (< 0.028)
[2020-06-14] MEDS: Loperamide HCl 2 MG CAP PO PRN ×2 (15:13→19:36)
[2020-06-14] MEDS: Cholecalciferol 1,000 UNITS (25 MCG) TAB PO SCH (20:33)
[2020-06-15] MEDS: Loperamide HCl 2 MG CAP PO PRN ×4 (00:15→20:32)
[2020-06-15] MEDS: Mometasone 200 MCG/Formoterol 5 MCG 120 PUFF INHALER INH SCH ×2 (08:25→19:13)
[2020-06-15] MEDS: Colchicine 0.6 MG TAB PO SCH (08:26)
[2020-06-15] MEDS: Dexamethasone 4 MG TAB PO SCH ×2 (08:33→20:30)
[2020-06-15] MEDS: Famotidine 20 MG TAB PER TUBE SCH ×2 (08:33→20:30)
[2020-06-15] MEDS: Enoxaparin Sodium 40 MG/0.4 ML SYRINGE SC SCH ×2 (08:33→20:31)
[2020-06-15] MEDS: Zinc Sulfate 220 MG CAP PO SCH (08:33)
[2020-06-15] MEDS: Escitalopram Oxalate 10 mg Tablet PO SCH (08:33)
[2020-06-15] MEDS: Ascorbic Acid 500 mg Chewable Tablet PO SCH ×2 (08:33→20:30)
[2020-06-15] MEDS: Acetaminophen 325 MG TAB PO PRN ×2 (13:36→20:32)
[2020-06-15 14:32] VITALS: BMI 40.0
[2020-06-15] MEDS: Cholecalciferol 1,000 UNITS (25 MCG) TAB PO SCH (20:29)
[2020-06-15] MEDS: Latanoprost 0.005% Ophth Soln 2.5 ml Bottle EA EYE SCH (20:31)
[2020-06-15] MEDS ORDERED: Ibuprofen 600 MG TAB PO SCH (23:45)
[2020-06-16] MEDS: Mometasone 200 MCG/Formoterol 5 MCG 120 PUFF INHALER INH SCH ×2 (07:13→19:44)
[2020-06-16] MEDS: Ascorbic Acid 500 mg Chewable Tablet PO SCH ×2 (08:08→20:30)
[2020-06-16] MEDS: Dexamethasone 4 MG TAB PO SCH ×2 (08:08→20:33)
[2020-06-16] MEDS: Famotidine 20 MG TAB PER TUBE SCH ×2 (08:08→20:33)
[2020-06-16] MEDS: Escitalopram Oxalate 10 mg Tablet PO SCH (08:08)
[2020-06-16] MEDS: Enoxaparin Sodium 40 MG/0.4 ML SYRINGE SC SCH ×2 (08:09→20:34)
[2020-06-16] MEDS: Zinc Sulfate 220 MG CAP PO SCH (08:09)
[2020-06-16] MEDS: Acetaminophen 325 MG TAB PO PRN ×2 (08:18→14:38)
[2020-06-16] MEDS ORDERED: HYDROcodone/Acetaminophen 5/325 mg Tablet PO PRN (15:52)
[2020-06-16] MEDS: Cholestyramine/Aspartame 4 gm Packet PO SCH ×2 (17:04→22:08)
[2020-06-16] MEDS: Cholecalciferol 1,000 UNITS (25 MCG) TAB PO SCH (20:32)
[2020-06-16] MEDS: Latanoprost 0.005% Ophth Soln 2.5 ml Bottle EA EYE SCH (20:34)
[2020-06-16] MEDS: Ibuprofen 200 MG TAB PO PRN (22:11)
[2020-06-17] MEDS: Acetaminophen 325 MG TAB PO PRN ×2 (01:55→08:54)
[2020-06-17 05:42] LABS: #Eosinphils 0.2 thou/uL (0.0-0.7); #Lymphocytes 1.4 thou/uL (1.20-3.40); #Monocytes 1.2 thou/uL (0.11-0.59); #Neutrophils 12.5 thou/uL (1.40-6.50); %Basophils 0.3 % (0.0-1.0); %Lymphocytes 9.2 % (21.0-51.0); %Monocytes 7.7 % (0.0-10.0); %Neutrophils 81.8 % (42.0-75.0); Hemoglobin 13.6 g/dL (14.0-18.0); Mean Corpuscular HGB CONC 32.1 g/dL (32.0-36.0); Mean Corpuscular Hemoglobin 27.6 pg (27.0-31.0); Mean Platelet Volume 9.5 fL (7.4-10.4); Platelet Count 152 thou/uL (130-400); RBC Distribution Width 13.2 % (11.5-14.5); Red Blood Cell (RBC) Count 4.93 mill/uL (4.70-6.10); White Blood Cell (WBC) Count 15.3 thou/uL (4.8-10.8)
[2020-06-17 06:05] LABS: Anion Gap 14 mmol/L (10-20); BUN (Urea Nitrogen) 26 mg/dL (8.9-20.6); Calc. Creatinine Clearance 202 mL/min (70-130); Calcium 8.4 mg/dL (7.8-10.44); Carbon Dioxide 20 mmol/L (22-29); Chloride 102 mmol/L (98-107); Glucose 104 mg/dL (70-105); Potassium 4.4 mmol/L (3.5-5.1); Sodium 132 mmol/L (136-145)
[2020-06-17] MEDS: Ibuprofen 200 MG TAB PO PRN (06:40)
[2020-06-17] MEDS: Ascorbic Acid 500 mg Chewable Tablet PO SCH ×2 (08:53→20:24)
[2020-06-17] MEDS: Famotidine 20 MG TAB PER TUBE SCH ×2 (08:53→20:26)
[2020-06-17] MEDS: Zinc Sulfate 220 MG CAP PO SCH (08:53)
[2020-06-17] MEDS: Dexamethasone 4 MG TAB PO SCH ×2 (08:54→20:26)
[2020-06-17] MEDS: Escitalopram Oxalate 10 mg Tablet PO SCH (08:54)
[2020-06-17] MEDS: Enoxaparin Sodium 40 MG/0.4 ML SYRINGE SC SCH ×2 (08:54→20:26)
[2020-06-17] MEDS: Mometasone 200 MCG/Formoterol 5 MCG 120 PUFF INHALER INH SCH ×2 (10:38→19:08)
[2020-06-17] MEDS ORDERED: Temazepam 15 MG CAP PO PRN (10:52)
[2020-06-17] MEDS ORDERED: Cyclobenzaprine 10 MG TAB PO SCH (11:00)
[2020-06-17] MEDS: Lidocaine 5% Patch TD SCH (11:37)
[2020-06-17] MEDS: Cholestyramine/Aspartame 4 gm Packet PO SCH ×3 (11:37→22:33)
[2020-06-17] MEDS: Cholecalciferol 1,000 UNITS (25 MCG) TAB PO SCH (20:25)
[2020-06-17] MEDS: Latanoprost 0.005% Ophth Soln 2.5 ml Bottle EA EYE SCH (20:26)
[2020-06-17] MEDS: Transdermal Patch Removal TOP SCH (22:33)
[2020-06-17] MEDS: Cyclobenzaprine 10 MG TAB PO PRN (23:35)
[2020-06-18] MEDS: Cyclobenzaprine 10 MG TAB PO PRN ×2 (09:16→20:54)
[2020-06-18] MEDS: Enoxaparin Sodium 40 MG/0.4 ML SYRINGE SC SCH ×2 (09:17→20:55)
[2020-06-18] MEDS: Ascorbic Acid 500 mg Chewable Tablet PO SCH ×2 (09:17→20:55)
[2020-06-18] MEDS: Escitalopram Oxalate 10 mg Tablet PO SCH (09:17)
[2020-06-18] MEDS: Zinc Sulfate 220 MG CAP PO SCH (09:17)
[2020-06-18] MEDS: Famotidine 20 MG TAB PER TUBE SCH ×2 (09:17→20:55)
[2020-06-18] MEDS: Cholestyramine/Aspartame 4 gm Packet PO SCH (09:18)
[2020-06-18] MEDS: Mometasone 200 MCG/Formoterol 5 MCG 120 PUFF INHALER INH SCH ×2 (13:00→19:25)
[2020-06-18] MEDS: Dexamethasone 4 MG TAB PO SCH (16:40)
[2020-06-18] MEDS: Lidocaine 5% Patch TD SCH (17:33)
[2020-06-18 20:51] VITALS: TEMP 98.3
[2020-06-18] MEDS: Cholecalciferol 1,000 UNITS (25 MCG) TAB PO SCH (20:54)
[2020-06-18] MEDS: Latanoprost 0.005% Ophth Soln 2.5 ml Bottle EA EYE SCH (20:55)
[2020-06-19] MEDS: Ibuprofen 200 MG TAB PO PRN (01:21)
[2020-06-19] MEDS: Transdermal Patch Removal TOP SCH (05:52)
[2020-06-19] MEDS: Mometasone 200 MCG/Formoterol 5 MCG 120 PUFF INHALER INH SCH (06:30)
[2020-06-19 08:00] VITALS: BP 102/67
[2020-06-19] MEDS: Famotidine 20 MG TAB PER TUBE SCH (08:32)
[2020-06-19] MEDS: Zinc Sulfate 220 MG CAP PO SCH (08:32)
[2020-06-19] MEDS: Escitalopram Oxalate 10 mg Tablet PO SCH (08:32)
[2020-06-19] MEDS: Ascorbic Acid 500 mg Chewable Tablet PO SCH (08:33)
[2020-06-19] MEDS: Enoxaparin Sodium 40 MG/0.4 ML SYRINGE SC SCH (08:33)
[2020-06-19] MEDS ORDERED: Dexamethasone 4 MG TAB PO SCH (09:00)
== END 2020-06-19 17:54 | disposition home or self-care (01) | DRG 207 ==
LOC: CCU 13:23 → T4-B 06-15 11:08
PROVIDERS: ADMIT Internal Medicine; ATTEND Family Medicine
PROC: 5A1955Z Respiratory Ventilation, Greater than 96 Consecutive Hours (ICD-10-PCS; principal; 2020-06-06)
PROC: XW033E5 Introduction of Remdesivir Anti-infective into Peripheral Vein, Percutaneous Approach, New Technology Group 5 (ICD-10-PCS; 2020-06-06)
PROC: 0BH17EZ Insertion of Endotracheal Airway into Trachea, Via Natural or Artificial Opening (ICD-10-PCS; 2020-06-06)
DX: U07.1 COVID-19 (principal); J96.01 Acute respiratory failure with hypoxia; J12.82 Pneumonia due to coronavirus disease 2019; Z68.41 Body mass index [BMI] 40.0-44.9, adult; G93.40 Encephalopathy, unspecified; I10 Essential (primary) hypertension; E66.01 Morbid (severe) obesity due to excess calories; H40.9 Unspecified glaucoma; Z87.891 Personal history of nicotine dependence; D64.9 Anemia, unspecified; R74.01 Elevation of levels of liver transaminase levels; F32.9 Major depressive disorder, single episode, unspecified; F41.9 Anxiety disorder, unspecified; R19.7 Diarrhea, unspecified; G47.00 Insomnia, unspecified; Z88.0 Allergy status to penicillin; Z79.899 Other long term (current) drug therapy
CPT/HCPCS: 36415; 36600; 71045; 80048; 80076; 82607; 82746; 82805; 83880; 84478; 84484; 85025; 86140; 87324; 87449; 93005; 93010; 94002; 94003; 94660; J0692; J1100; J1650; J2060; J2250; J2704; J3010; J3262; J3411; J3490; J7050; J8540; P9045; P9047; S0028

== ENCOUNTER 2021-09-30 09:05 | Outpatient (CLI) | payer BC | END 2021-09-30 09:06 | disposition home or self-care (01) | LOC: RAD 09:05 | PROVIDERS: ATTEND Internal Medicine Critical Care Medicine | DX: R06.00 Dyspnea, unspecified (principal) | CPT/HCPCS: 71046 ==

== ENCOUNTER 2023-08-06 16:00 | Outpatient (CLI) | payer BC | END 2023-08-06 16:01 | disposition home or self-care (01) | LOC: SLEEPLAB 16:00 | PROVIDERS: ATTEND Family Medicine | DX: G47.33 Obstructive sleep apnea (adult) (pediatric) (principal); R53.83 Other fatigue; F41.9 Anxiety disorder, unspecified; E66.9 Obesity, unspecified; R06.83 Snoring; I10 Essential (primary) hypertension; G47.00 Insomnia, unspecified; Z68.41 Body mass index [BMI] 40.0-44.9, adult | CPT/HCPCS: 95800 ==